=== PATIENT | male | born 1985 | race Caucasian/White ===

== ENCOUNTER 2017-08-09 14:11 | Outpatient (CLI) | payer OTHER ==
[~2017-08-09 14:11] MED LIST: Gadobenate Dimeglumine 529 MG/1 ML (20ML VIAL) ONE; Iopamidol 300 61% 30 ML VIAL ONE
[2017-08-09] MEDS ORDERED: Gadobenate Dimeglumine 529 MG/ML (10ML VIAL) ONE (14:36)
[2017-08-09] MEDS ORDERED: Iopamidol 300 61% 30 ML VIAL ONE (14:36)
[2017-08-09] MEDS ORDERED: EPINEPHrine 1 MG/ML AMP ONE (14:36)
[2017-08-09] MEDS ORDERED: Lidocaine 1% PF 5 ML VIAL ONE (14:36)
--- NOTE | 2017-08-09 18:55 | RAD ---
HISTORY: Left shoulder pain, M25.512. LEFT SHOULDER ARTHROGRAM: 08/09/17 RADIATION DOSIMETRY: 1 minute of fluoroscopy and AK of 137 uGy. Informed consent was obtained from the patient. The left shoulder was prepped and draped in the usual sterile manner. A 1% lidocaine solution was used to anesthetize the overlying soft tissues. A 22 gau ge spinal needle was placed near the left shoulder joint. A total of 7 mL of a mixture of gadolinium, sterile iodinated contrast, sterile saline, lidocaine, and epinephrine were injected into the left s houlder without difficulty. Postprocedure spot images obtained. Left shoulder MRI is pending. IMPRESSION: Successful left shoulder arthrogram prior to MRI. POS: [facility]
--- NOTE | 2017-08-09 19:40 | MRI ---
LEFT SHOULDER MRI POST ARTHROGRAM CONTRAST 08/09/17 HISTORY: 32-year-old male with left shoulder pain. Multiplanar and multisequence MRI examination of the left shoulder performed following left shoulder arthrogram. Very minute AC joint arthrosis changes are noted. No significant subacromial fluid or abnormal fat st randing. There are some subchondral cystic changes noted adjacent to the insertion of the infraspinat us tendon with a probable associated low grade undersurface tear. No evidence for complete full thickness or retracted rotator cuff tear. The labrum appears unremarkab le. No evidence for Hill-Sachs or bony Bankart lesion. The axillary pouch is slightly patulous biceps tendon and subscapularis tendon appear unremarkable. Rotator cuff muscles are within normal limits. IMPRESSION: Subchondral cystic changes of the humeral head adjacent to the infraspinatus tendon insertion with a probable associated punctate low grade partial thickness undersurface tear. Slightly patulous axillar y pouch. No evidence for other significant acute internal derangement. POS: [facility]
== END 2017-08-09 14:12 | disposition home or self-care (01) ==
LOC: RAD 14:11
PROVIDERS: ATTEND Orthopaedic Surgery
DX: M25.512 Pain in left shoulder (principal); M85.40 Solitary bone cyst, unspecified site
CPT/HCPCS: 23350; A9579; J0171; J2001; J7050